=== PATIENT | male | born 1995 | race Hispanic/Latino ===

== ENCOUNTER 2017-06-19 23:18 | Emergency (ER) | payer SELFPAY | END 2017-06-20 01:08 | disposition home or self-care (01) | LOC: ERS 23:18 | DX: L02.31 Cutaneous abscess of buttock (principal); F41.9 Anxiety disorder, unspecified; F17.210 Nicotine dependence, cigarettes, uncomplicated | CPT/HCPCS: 10060; 87070; 87077; 87186; 87205 ==

== ENCOUNTER 2017-09-10 16:36 | Emergency (ER) | payer SELFPAY ==
--- NOTE | 2017-09-10 20:42 | RAD ---
PA AND LATERAL VIEWS OF THE CHEST: 09/10/17 HISTORY: Chest pain. FINDINGS: The heart size is normal. The lungs are well expanded without focal areas of consolidation, pneumotho races, or pleural effusions. No acute osseous abnormalities are seen. IMPRESSION: No radiographic evidence of acute cardiopulmonary process. POS: [facility]
== END 2017-09-10 20:55 | disposition home or self-care (01) ==
LOC: ERS 16:36
DX: R07.89 Other chest pain (principal); F17.210 Nicotine dependence, cigarettes, uncomplicated
CPT/HCPCS: 71046; 93005